=== PATIENT | male | born 1980 | race Caucasian/White ===

== ENCOUNTER 2017-03-14 23:42 | Observation (INO) | payer BC ==
[~2017-03-14] VITALS: Ht 180.3 cm; Wt 98.1 kg
[2017-03-15] VITALS (12 sets, daily range): BP systolic 102–134; BP diastolic 52–82; PULSE 70–121; RESP 20; Ht 180.3 cm; Wt 98.1 kg
[2017-03-15] MEDS ORDERED: DILTIAZEM 25 MG INJ IV ONE ×2 (00:30→01:30)
[2017-03-15] MEDS ORDERED: ENOXAPARIN 100 MG/ML SYG SC ONE (00:30)
[2017-03-15 00:41] LABS: ADD SCAN DIFF NO
[2017-03-15 00:43] LABS: BASOPHILS % 0.4 % (0.0-2.0); EOSINOPHILS # 0.3 10^3/ul (0.0-0.5); EOSINOPHILS % 3.8 % (0.0-7.0); HEMATOCRIT 39.7 % (42.0-52.0); HEMOGLOBIN 13.6 g/dl (14.0-18.0); LYMPHOCYTES # 2.6 10^3/ul (0.8-2.9); LYMPHOCYTES % 34.9 % (15.0-51.0); MEAN CORPUSCULAR HEMOGLOBIN 29.9 pg (29.0-33.0); MEAN CORPUSCULAR HGB CONC 34.3 g/dl (32.0-37.0); MEAN CORPUSCULAR VOLUME 87.3 fl (82.0-101.0); MONOCYTE # 0.7 10^3/ul (0.3-0.9); MONOCYTES % 8.8 % (0.0-11.0); NEUTROPHIL # 3.8 10^3/ul (1.6-7.5); NEUTROPHILS % 51.6 % (39.0-77.0); PLATELET COUNT 244 10^3/UL (140-415); RED BLOOD COUNT 4.55 10^6/ul (4.70-6.10); RED CELL DISTRIBUTION WIDTH 12.4 % (11.5-14.5); WHITE BLOOD COUNT 7.4 10^3/ul (4.8-10.8)
[2017-03-15 00:55] LABS: INR 0.9; PROTIME 12.1 Sec (12.2-14.2); PT RATIO 0.9
[2017-03-15 00:56] LABS: PARTIAL THROMBOPLASTIN TIME 27.1 Sec (25.0-35.0)
[2017-03-15 00:58] LABS: ALANINE AMINOTRANSFERASE 72 IU/L (13-69); ALBUMIN 4.5 g/dl (3.3-4.9); ALBUMIN/GLOBULIN RATIO 1.25; ALKALINE PHOSPHATASE 51 IU/L (42-121); ANION GAP 12 (8-16); ASPARTATE AMINO TRANSFERASE 50 IU/L (15-46); BILIRUBIN,INDIRECT 0.2 mg/dl (0-1.1); BILIRUBIN,TOTAL 0.2 mg/dl (0.2-1.3); BLOOD UREA NITROGEN 17 mg/dl (7-20); CARBON DIOXIDE 27 mmol/L (21-31); CHLORIDE 104 mmol/L (97-110); CREATININE 0.91 mg/dl (0.61-1.24); GLUCOSE 104 mg/dl (70-220); POTASSIUM 3.6 mmol/L (3.5-5.1); SODIUM 139 mmol/L (135-144); TOTAL PROTEIN 8.1 g/dl (6.1-8.1)
--- NOTE | 2017-03-15 01:09 | RADRPT ---
PROCEDURE: Chest. CLINICAL INDICATION: Chest pain. TECHNIQUE: Single frontal view of the chest was obtained. COMPARISON: None. FINDINGS: The cardiac silhouette is within normal limits. The aortic arch is unremarkable. There is no focal consolidation, vascular congestion or pleural effusion. There is no pneumothorax. IMPRESSION: No evidence for active cardiopulmonary disease. .Refugio Her MD, MD Date Time Electronically viewed and signed by .Refugio Her MD, on 03/15/2017 01:09 .T/
[2017-03-15 01:11] LABS: TROPONIN-I < 0.012 ng/ml (0.00-0.12)
[2017-03-15] MEDS ORDERED: DILTIAZEM-D5W 125MG/125ML DRIP 125 ML IV SCH (01:30)
--- NOTE | 2017-03-15 01:55 | ERA ---
ER Documentation Chief Complaint Date/Time DATE: 03/15/17 TIME: 01:52 Chief Complaint PT C/O PALPITATIONS X 20 MIN, NO OTHER HX HPI This is a 37-year-old male who is here for palpitations. The patient states that he was laying in bed trying to fall asleep and he noticed that his heart rate started racing. 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 He has no chest pain dizziness shortness of breath. Patient says he does drink 3 medium sized coffees every day as well as a monster energy drink. He is also currently taking over-the- counter cold medication but does not know the ingredients. He has no cardiac history. ROS All systems reviewed and are negative except as per history of present illness. Allergies Allergies: Coded Allergies: No Known Allergy (Unverified , 03/14/17) PMhx/Soc Medical and Surgical Hx: pt denies Medical Hx, pt denies Surgical Hx History of Surgery: No Anesthesia Reaction: No Hx Neurological Disorder: No Hx Respiratory Disorders: No Hx Cardiac Disorders: No Hx Psychiatric Problems: No Hx Miscellaneous Medical Probl: No Hx Alcohol Use: No Hx Substance Use: No Hx Tobacco Use: No Smoking Status: Never smoker FmHx Family History: No coronary disease Physical Exam Vitals Vital Signs Date Time Temp Pulse Resp B/P Pulse Ox O2 Delivery O2 Flow Rate FiO2 03/14/17 23:45 97.0 80 16 137/83 97 Physical Exam Const: Well-developed, well-nourished Head: Atraumatic, normocephalic Eyes: Normal Conjunctiva, PERRLA, EOMI, normal sclera, no nystagmus ENT: Normal External Ears, Nose and Mouth, moist mucus membranes. Neck: Full range of motion. No meningismus, no lymphadenopathy. Resp: Clear to auscultation bilaterally, no wheezing, rhonchi, rales Cardio: Regular rate and rhythm no murmurs, S1 S2 present Abd: Soft, non tender x 4, non distended. Normal bowel sounds, no guarding or rebound, no pulsitile abdominal masses or bruits Skin: No petechiae or rashes, no ecchymosis , no maculopapular rash Back: No midline or flank tenderness Ext: No cyanosis, or edema, FROM x 4, normal inspection, neurovascularly intact x 4 Neur: Awake and alert, STR 5/5 x 4, sensation intact x 4, no focal findings, cerebellum intact Psych: Normal Mood and Affect Result Diagram: 03/15/172903/15/1729 Results 24 hrs Laboratory Tests Test 03/15/17 00:30 White Blood Count 7.410^3/ul Red Blood Count 4.5510^6/ul Hemoglobin 13.6g/dl Hematocrit 39.7% Mean Corpuscular Volume 87.3fl Mean Corpuscular Hemoglobin 29.9pg Mean Corpuscular Hemoglobin Concent 34.3g/dl Red Cell Distribution Width 12.4% Platelet Count 23133^3/UL Mean Platelet Volume 10.0fl Neutrophils % 51.6% Lymphocytes % 34.9% Monocytes % 8.8% Eosinophils % 3.8% Basophils % 0.4% Nucleated Red Blood Cells % 0.0/100WBC Neutrophils # 3.810^3/ul Lymphocytes # 2.610^3/ul Monocytes # 0.710^3/ul Eosinophils # 0.310^3/ul Basophils # 0.010^3/ul Nucleated Red Blood Cells # 0.010^3/ul Prothrombin Time 12.1Sec Prothrombin Time Ratio 0.9 INR International Normalized Ratio 0.90 Activated Partial Thromboplast Time 27.1Sec Sodium Level 139mmol/L Potassium Level 3.6mmol/L Chloride Level 104mmol/L Carbon Dioxide Level 27mmol/L Anion Gap 12 Blood Urea Nitrogen 17mg/dl Creatinine 0.91mg/dl Glucose Level 104mg/dl Calcium Level 9.0mg/dl Total Bilirubin 0.2mg/dl Direct Bilirubin 0.00mg/dl Indirect Bilirubin 0.2mg/dl Aspartate Amino Transf (AST/SGOT) 50IU/L Alanine Aminotransferase (ALT/SGPT) 72IU/L Alkaline Phosphatase 51IU/L Troponin I < 0.012ng/ml Total Protein 8.1g/dl Albumin 4.5g/dl Globulin 3.60g/dl Albumin/Globulin Ratio 1.25 Current Medications Medications (Trade) Dose Ordered Sig/Nga Route PRN Reason Start Time Stop Time Status Last Admin Dose Admin Diltiazem HCl (Cardizem Iv) 20 mg ONCE ONCE IV 03/15/17 00:30 03/15/17 00:31 DC 03/15/17 00:17 Enoxaparin Sodium (Lovenox) 100 mg ONCE ONCE SC 03/15/17 00:30 03/15/17 00:31 DC 03/15/17 00:16 Diltiazem HCl 20 mg 20 mg ONCE ONCE IV 03/15/17 01:30 03/15/17 01:31 DC 03/15/17 01:30 Diltiazem HCl (Cardizem-D5W 125 Mg/125 ml Drip) 125 ml @ 10 mls/hr [id number] IV 03/15/17 01:30 03/15/17 01:30 Procedures/MDM EKG: Rate/Rhythm: Atrial fibrillation with rapid ventricular response QRS, ST, QT: NORMAL , QRS, QT] Impression: A. fib with RVR PROCEDURE: Chest. CLINICAL INDICATION: Chest pain. TECHNIQUE: Single frontal view of the chest was obtained. COMPARISON: None. FINDINGS: The cardiac silhouette is within normal limits. The aortic arch is unremarkable. There is no focal consolidation, vascular congestion or pleural effusion. There is no pneumothorax. IMPRESSION: No evidence for active cardiopulmonary disease. .Refugio Her MD, Date Time Electronically viewed and signed by .Refugio Her MD, MD on 03/15/2017 01:09 .T/ CC: JASWANT CASAS DO Patient received Cardizem IV bolus and drip to control his heart rate. Heart rate was running from 119-172 Patient's A. fib is likely due to a combination of caffeine and over-the- counter decongestants. After Cardizem was given he still in A. fib but rate controlled. Will admit him for cardioversion Lovenox subcu has been given Departure Diagnosis: Primary Impression: Atrial fibrillation with rapid ventricular response Condition: Stable JASWANT CASAS DO March 15, 2017 01:55
[2017-03-15] MEDS ORDERED: ONDANSETRON 4 MG INJ IV PRN ×2 (02:00→03:30)
[2017-03-15] MEDS ORDERED: ACETAMINOPHEN 325 MG TAB PO PRN (02:00)
[2017-03-15] MEDS: ACETAMINOPHEN 325 MG TAB PO PRN ×2 (04:15→10:33)
--- NOTE | 2017-03-15 04:58 | HP ---
Date/Time of Note Date/Time of Note DATE: 03/15/17 TIME: 04:39 Assessment/Plan VTE Prophylaxis VTE Prophylaxis Intervention: SCD's Lines/Catheters IV Catheter Type (from [facility]): Saline Lock Urinary Cath still in place: No Assessment/Plan Assessment/Plan IMPRESSION 37 yo with new onset Afib likely cold med and coffee induced, currently rate controlled. PLAN Currently rate controlled. Will place him on Beta-Blockers, aspirin Will obtain 2D-echo and will consider cardiology consult. Will trend trops and check Thyroid profile in am HPI/ROS Admit Date/Time Admit Date/Time March 15, 2017 at 01:56 Hx of Present Illness This is a 37 yo with no significant past medical presented to ER c/o sudden onset palpitations that occurs at home. He said he ate sea food and had a beer last night. He drinks several cups of coffee and takes OTC allergy med. He denied chest pain, SOB, fever, chills, N/V, diaphoresis. In ER he was found to be in Afib with RVR with HR in 150s. Currently on Cadrizem gtt and HR is in 70s. . PMH/Family/Social Past Medical History Medical History: no pertinent history Past Surgical History Past Surgical Hx: no surgical history Social History Alcohol Use: none Smoking Status: Never smoker Drug Use: none Exam/Review of Systems Vital Signs Vitals Vital Signs Date Time Temp Pulse Resp B/P Pulse Ox O2 Delivery O2 Flow Rate FiO2 03/15/17 04:07 79 03/15/17 02:45 98.7 20 102/62 96 Room Air Exam Constitutional: alert, oriented, well developed Head: atraumatic, normocephalic Eyes: EOMI, PERRL Neck: non-tender, supple Respiratory: clear to auscultation, normal air movement Cardiovascular: nl pulses, regular rate and rhythm Gastrointestinal: non-tender, soft Extremities: normal pulses Labs Result Diagram: 03/15/17 0030 03/15/17 0030 Medications Medications Current Medications Metoprolol Tartrate (Lopressor) 25 mg BID PO ; Start 03/15/17 at 09:00 Ondansetron HCl (Zofran Inj) 4 mg Q6H PRN IV NAUSEA AND/OR VOMITING; Start 03/15 at 03:30 Acetaminophen (Tylenol Tab) 650 mg Q6H PRN PO PAIN AND OR ELEVATED TEMP Last administered on 03/15/17t 04:15; Admin Dose 650 MG; Start 03/15/17 at 03:30 TI KING MD March 15, 2017 04:56
[2017-03-15] MEDS ORDERED: SOD CHLORIDE 0.9% 1,000 ML IV ONE (06:30)
[2017-03-15 07:59] LABS: ADD SCAN DIFF NO
[2017-03-15 08:02] LABS: BASOPHILS % 0.5 % (0.0-2.0); EOSINOPHILS # 0.1 10^3/ul (0.0-0.5); EOSINOPHILS % 1.6 % (0.0-7.0); HEMATOCRIT 40.8 % (42.0-52.0); HEMOGLOBIN 13.6 g/dl (14.0-18.0); LYMPHOCYTES # 2.2 10^3/ul (0.8-2.9); LYMPHOCYTES % 28.9 % (15.0-51.0); MEAN CORPUSCULAR HEMOGLOBIN 29.1 pg (29.0-33.0); MEAN CORPUSCULAR HGB CONC 33.3 g/dl (32.0-37.0); MEAN CORPUSCULAR VOLUME 87.2 fl (82.0-101.0); MEAN PLATELET VOLUME 9.9 fl (7.4-10.4); MONOCYTE # 0.7 10^3/ul (0.3-0.9); MONOCYTES % 8.7 % (0.0-11.0); NEUTROPHIL # 4.6 10^3/ul (1.6-7.5); NEUTROPHILS % 59.9 % (39.0-77.0); PLATELET COUNT 259 10^3/UL (140-415); RED BLOOD COUNT 4.68 10^6/ul (4.70-6.10); RED CELL DISTRIBUTION WIDTH 12.8 % (11.5-14.5); WHITE BLOOD COUNT 7.6 10^3/ul (4.8-10.8)
[2017-03-15] MEDS: DILTIAZEM-D5W 125MG/125ML DRIP 125 ML IV SCH ×2 (08:22→19:00)
[2017-03-15 08:34] LABS: ALBUMIN/GLOBULIN RATIO 1.25; BILIRUBIN,INDIRECT 0.3 mg/dl (0-1.1); BILIRUBIN,TOTAL 0.3 mg/dl (0.2-1.3); CALCIUM 8.7 mg/dl (8.4-10.2); CHOL/HDL RATIO 6.4 RATIO; CREATININE 0.84 mg/dl (0.61-1.24); MAGNESIUM 2.1 mg/dl (1.7-2.5); PHOSPHORUS 4.1 mg/dl (2.5-4.9); POTASSIUM 3.8 mmol/L (3.5-5.1); TOTAL PROTEIN 7.2 g/dl (6.1-8.1)
[2017-03-15] MEDS ORDERED: METOPROLOL 25 MG TAB PO SCH (09:00)
[2017-03-15] MEDS ORDERED: ASPIRIN (EC) 325 MG TAB PO SCH (09:00)
[2017-03-15 09:06] LABS: THYROID STIMULATING HORMONE 1.68 MIU/L (0.465-4.680); TRIIODOTHYRONINE 1.96 ng/ml (0.97-1.69)
--- NOTE | 2017-03-15 12:43 | PN ---
Date/Time of Note Date/Time of Note DATE: 03/15/17 TIME: 12:39 Assessment/Plan VTE Prophylaxis VTE Prophylaxis Intervention: ambulation Lines/Catheters IV [facility]ter Type (from [facility]): Peripheral IV Urinary Cath still in place: No Assessment/Plan Chief Complaint/Hosp Course Assessment 1. New onset atrial fibrillation with rapid ventricular rate 2. No prior history of valvular heart disease 3. Recent increase consumption of highly caffeinated drinks Plan 1. Echocardiogram pending 2. Cardiology evaluation, may require cardioversion during this admission 3. Continue rate control with Cardizem 4. Will consider anticoagulation following discussion with cardiology 5. Check thyroid function testing and lipid panel Disposition continue telemetry monitoring Problems: Subjective 24 Hr Interval Summary Free Text/Dictation Patient remains stable this morning denies any chest pain or palpitations He is ambulating without shortness of breath Remains in atrial fibrillation however rate is controlled Upon further questioning he has recently had significant consumption of highly caffeinated drinks Exam/Review of Systems Vital Signs Vitals Vital Signs Date Time Temp Pulse Resp B/P Pulse Ox O2 Delivery O2 Flow Rate FiO2 03/15/17 12:13 76 03/15/17 11:43 99.2 20 102/67 96 03/15/17 02:45 Room Air Intake and Output 03/14/17 03/14/17 03/15/17 15:00 23:00 07:00 Intake Total 240 ml Balance 240 ml Exam GENERAL: Well-nourished well-developed gentleman comfortable at rest VITAL SIGNS: per chart NECK: Supple. No JVD or lymphadenopathy. CARDIAC EXAM: S1, S2. Atrial fibrillation CHEST: clear bilaterally, No added sounds, rales or wheezes ABDOMEN: Soft, nontender. No guarding or rebound. EXTREMITIES: No cyanosis, clubbing or edema. NEUROLOGIC: Generalized weakness. No focal deficits. Results Result Diagram: 03/15/17 0710 03/15/17 0710 Results 24 hrs Laboratory Tests Test 03/15/17 00:30 03/15/17 07:10 White Blood Count 7.4 7.6 Red Blood Count 4.55 L 4.68 L Hemoglobin 13.6 L 13.6 L Hematocrit 39.7 L 40.8 L Mean Corpuscular Volume 87.3 87.2 Mean Corpuscular Hemoglobin 29.9 29.1 Mean Corpuscular Hemoglobin Concent 34.3 33.3 Red Cell Distribution Width 12.4 12.8 Platelet Count 244 259 Mean Platelet Volume 10.0 9.9 Neutrophils % 51.6 59.9 Lymphocytes % 34.9 28.9 Monocytes % 8.8 8.7 Eosinophils % 3.8 1.6 Basophils % 0.4 0.5 Nucleated Red Blood Cells % 0.0 0.0 Neutrophils # 3.8 4.6 Lymphocytes # 2.6 2.2 Monocytes # 0.7 0.7 Eosinophils # 0.3 0.1 Basophils # 0.0 0.0 Nucleated Red Blood Cells # 0.0 0.0 Prothrombin Time 12.1 L Prothrombin Time Ratio 0.9 INR International Normalized Ratio 0.90 Activated Partial Thromboplast Time 27.1 Sodium Level 139 139 Potassium Level 3.6 3.8 Chloride Level 104 109 Carbon Dioxide Level 27 24 Anion Gap 12 10 Blood Urea Nitrogen 17 14 Creatinine 0.91 0.84 Glucose Level 104 98 Calcium Level 9.0 8.7 Total Bilirubin 0.2 0.3 Direct Bilirubin 0.00 0.00 Indirect Bilirubin 0.2 0.3 Aspartate Amino Transf (AST/SGOT) 50 H 41 Alanine Aminotransferase (ALT/SGPT) 72 H 65 Alkaline Phosphatase 51 53 Troponin I < 0.012 Total Protein 8.1 7.2 Albumin 4.5 4.0 Globulin 3.60 H 3.20 Albumin/Globulin Ratio 1.25 1.25 Hemoglobin A1c 5.2 Phosphorus Level 4.1 Magnesium Level 2.1 Triglycerides Level 117 Cholesterol Level 174 LDL Cholesterol, Calculated 124 HDL Cholesterol 27 L Cholesterol/HDL Ratio 6.4 Thyroid Stimulating Hormone (TSH) 1.680 Thyroxine (T4) 10.2 Total Triiodothyronine 1.96 H Medications Medications Current Medications Metoprolol Tartrate (Lopressor) 25 mg BID PO Last administered on 03/15/17 09: 04; Admin Dose 25 MG; Start 03/15/17 at 09:00 Ondansetron HCl (Zofran Inj) 4 mg Q6H PRN IV NAUSEA AND/OR VOMITING; Start 03/15 at 03:30 Acetaminophen 650 mg 650 mg Q6H PRN PO PAIN AND OR ELEVATED TEMP Last administered on 03/15/17 10:33; Admin Dose 650 MG; Start 03/15/17 at 03:30 Diltiazem HCl (Cardizem-D5W 125 Mg/125 ml Drip) 125 ml @ 10 mls/hr [id number] IV Last administered on 03/15/17 08:22; Admin Dose 10 MLS/HR; Start 03/15/17 at 06: 30 Aspirin (Ecotrin) 325 mg DAILY PO Last administered on 03/15/17 09:14; Admin Dose 325 MG; Start 03/15/17 at 09:00 BILL ROY MD, [facility] March 15, 2017 12:42
--- NOTE | 2017-03-15 14:09 | RADRPT ---
Echocardiogram Report Patient Name: TI PATEL Gender: Male Date: 1980 Study Date: 15-Mar-2017 Court Crier: Mary Garcia [facility] Location: 5539 Ref. Physician: TI KING Quality: Adequate Procedures: Transthoracic echocardiogram with complete 2D, M-Mode, and doppler examination. Indications: Atrial Fibrillation. 2D/M Mode Doppler Measurement Value Normal Ranges Measurement Value Normal Ranges LVIDd 2D 4.9 3.5 - 5.6 cm AV Peak Paresh 1.5 m/sec LVIDs 2D 3.2 2.1 - 4.1 cm AV Peak PG 9.3 mmHg LVPWd 2D 0.8 0.6 - 1.1 cm LVOT Peak Paresh 1.1 m/sec IVSd 2D 0.8 0.6 - 1.1 cm LVOT Peak PG 4.8 mmHg AoR Diam 2D 3.3 2.0 - 3.7 cm TR Peak Paresh 1.8 m/sec EDV 2D 114.3 cm3 TR Peak PG 13.4 mmHg ESV 2D 34.2 cm3 RVSP 16.0 mmHg LA Dimen 2D 3.4 2.3 - 4.0 cm Findings Left Ventricle: Lower limits of normal systolic function. Normal left ventricular cavity size. Normal left ventricular wall thickness. Ejection fraction is visually estimated at 50 - 55 %. Tissue Doppler/Mitral Doppler indices are indeterminate in this study due to the presence of atrial fibrillation. Right Ventricle: Normal right ventricular size. Normal right ventricular systolic function. Left Atrium: The left atrium is normal in size. Right Atrium: The right atrium is normal in size. Mitral Valve: Normal appearance and function of the mitral valve with trace physiologic regurgitation. Aortic Valve: Normal appearance of the aortic valve. No significant aortic stenosis or insufficiency. Tricuspid Valve: Normal appearance of the tricuspid valve. Estimated peak PA systolic pressure 16 mmHg. There is trace tricuspid regurgitation. Pulmonic Valve: Normal pulmonic valve appearance. Pericardium: Normal pericardium with no significant pericardial effusion. Aorta: Normal aortic root. IVC: Normal size and normal respiratory collapse consistent with normal right atrial pressure. Conclusions 1.Lower limits of normal systolic function. Normal left ventricular cavity size. Normal left ventricular wall thickness. Ejection fraction is visually estimated at 50 - 55 %. Tissue Doppler/Mitral Doppler indices are indeterminate in this study due to the presence of atrial fibrillation. 2.Normal appearance and function of the mitral valve with trace physiologic regurgitation. 3.Normal appearance of the aortic valve. No significant aortic stenosis or insufficiency. 4.Normal appearance of the tricuspid valve. Estimated peak PA systolic pressure 16 mmHg. There is trace tricuspid regurgitation. Electronically Signed By: Jose Alfredo 15-Mar-2017 14:08:00 -0700 Patient Name: TI PATEL Study Date: 15-Mar-2017 [id number]
[2017-03-15] MEDS ORDERED: POTASSIUM CHLORIDE (SR) 20 MEQ TAB PO STA (14:43)
[2017-03-15] MEDS ORDERED: RIVAROXABAN 20 MG TABLET PO SCH (18:05)
[2017-03-15] MEDS ORDERED: ZOLPIDEM 5 MG TAB PO PRN (19:00)
--- NOTE | 2017-03-15 19:00 | CONS ---
DATE OF ADMISSION: 03/15/2017 DATE OF CONSULTATION: REFERRING PHYSICIAN: Dr. King. REASON FOR CONSULTATION: Atrial fibrillation. CHIEF COMPLAINT: Palpitation. HISTORY OF PRESENT ILLNESS: Thank you for this referral. History obtained from the patient, adriana jeronimo with Dr. Ohara, discussion with the staff. Discussion with his brother and his girlfriend osmel rizzo. A very pleasant 37-year-old gentleman with known past medical history who came to emergency r oom with above complaint. The patient last night, he had sudden onset of chest palpitations, heart was pounding, it did not go away, he came to the emergency room and was noted to be in atrial fibril lation with rapid ventricular response. He has been placed on Cardizem drip, beta andria, heart ra te has improved. He is still in atrial fibrillation, but he feels much better. Denies any chest pa in or pressure, ____ palpitation to me. He denies any history of drug use, tobacco use or heavy alc ohol use. Has had maybe half of a beer last night only. He does drink quite amount of coffee and s timulants and Red Bull to keep him awake. He ____ late at night as well. PAST MEDICAL HISTORY: None. SURGICAL HISTORY: None. SOCIAL HISTORY: Does not smoke or drink. FAMILY HISTORY: No reported early coronary artery disease. ALLERGIES: NO REPORTED ALLERGIES. MEDICATIONS AT HOME: None. REVIEW OF SYSTEMS: All otherwise negative except for above mentioned. He denies any snoring at nig httime either. PHYSICAL EXAMINATION: VITAL SIGNS: Temperature 99.2, heart rate of 76, blood pressure 102/67, respiration rate of 20, sat urating 96%. Heart rate was initially in the 150s. HEENT: Normocephalic, atraumatic. No acute distress. CARDIOVASCULAR: Irregularly irregular, systolic murmur. PULMONARY: No wheezes heard. GASTROINTESTINAL: Soft, nontender. EXTREMITIES: No significant lower extremity edema. NEUROLOGIC: Awake, alert, oriented x3. PSYCHIATRIC: Calm, very pleasant. DERMATOLOGIC: With no active bleeding sign. LABORATORY: Sodium 139, potassium 3.8, BUN of 14, creatinine 0.84, glucose of 98. Potassium was 3. 6 at midnight and 3.8 now. Mag is ____. Cholesterol 174, LDL 124, HDL 27. TSH is 1.6. Albumin is 4. Troponin less than 0.12. ALT of 72, down to 65. EKG: Atrial fibrillation with rapid ventricular response. Echocardiogram was also personally reviewed, which showed normal LV size and ejection fraction of pr obably about 50-55% with normal left atrial size. ASSESSMENT AND PLAN: 1. Atrial fibrillation with rapid ventricular response appeared to be paroxysmal. 2. Palpitations secondary to above. 3. Dyslipidemia. 4. Elevated liver function tests. RECOMMENDATIONS: I will start the patient on Xarelto. Stop the metoprolol and instead put him on s otalol 80 mg p.o. b.i.d. Replace the potassium. We will give another 20 mEq of potassium. Will mo nitor him until tomorrow morning. If by tomorrow, he does not convert back to sinus rhythm, we will plan to do AISSATOU cardioversion. Risks and benefits of the procedure discussed with the patient in det ail. The risks including the risk of CVA, anesthesia complications, perforation, etc., discussed wi th the patient in the presence of his brother and girlfriend in detail. He has consented to procedu re. Thank you for this referral. Dictated By: SCOTTY SAUCEDA MD AV/TRACEY Conf#: [id number] DID#: [id number] CC: TI KING MD;*End*
[2017-03-15] MEDS ORDERED: SOTALOL 80 MG TAB PO SCH (21:00)
[2017-03-15] MEDS: METOPROLOL 25 MG TAB PO SCH (21:24)
[2017-03-16 00:10] VITALS: PULSE 72
[2017-03-16 00:18] VITALS: BP 121/63; RESP 20
[2017-03-16 03:42] VITALS: BP 123/67; RESP 20
[2017-03-16 04:01] VITALS: PULSE 63
[2017-03-16] MEDS: DILTIAZEM-D5W 125MG/125ML DRIP 125 ML IV SCH (07:12)
[2017-03-16 07:21] LABS: ADD SCAN DIFF NO
[2017-03-16 07:37] LABS: BASOPHILS % 0.4 % (0.0-2.0); EOSINOPHILS # 0.2 10^3/ul (0.0-0.5); EOSINOPHILS % 3.2 % (0.0-7.0); HEMATOCRIT 42.4 % (42.0-52.0); HEMOGLOBIN 14.7 g/dl (14.0-18.0); LYMPHOCYTES # 2.1 10^3/ul (0.8-2.9); LYMPHOCYTES % 28.2 % (15.0-51.0); MEAN CORPUSCULAR HEMOGLOBIN 30.3 pg (29.0-33.0); MEAN CORPUSCULAR HGB CONC 34.7 g/dl (32.0-37.0); MEAN CORPUSCULAR VOLUME 87.4 fl (82.0-101.0); MONOCYTE # 0.6 10^3/ul (0.3-0.9); MONOCYTES % 7.7 % (0.0-11.0); NEUTROPHIL # 4.4 10^3/ul (1.6-7.5); NEUTROPHILS % 59.9 % (39.0-77.0); PLATELET COUNT 267 10^3/UL (140-415); RED BLOOD COUNT 4.85 10^6/ul (4.70-6.10); RED CELL DISTRIBUTION WIDTH 12.6 % (11.5-14.5); WHITE BLOOD COUNT 7.3 10^3/ul (4.8-10.8)
[2017-03-16 07:49] LABS: CALCIUM 9.1 mg/dl (8.4-10.2); CREATININE 0.88 mg/dl (0.61-1.24); MAGNESIUM 2.2 mg/dl (1.7-2.5); PHOSPHORUS 4.2 mg/dl (2.5-4.9); POTASSIUM 3.9 mmol/L (3.5-5.1)
[2017-03-16 07:52] VITALS: BP 114/77; RESP 18
[2017-03-16 07:53] LABS: INR 1.31; PROTIME 16.4 Sec (12.2-14.2); PT RATIO 1.3
[2017-03-16 07:54] LABS: ALBUMIN 4.3 g/dl (3.3-4.9); ALBUMIN/GLOBULIN RATIO 1.43; BILIRUBIN,INDIRECT 0.4 mg/dl (0-1.1); BILIRUBIN,TOTAL 0.4 mg/dl (0.2-1.3); CALCIUM 9.2 mg/dl (8.4-10.2); CHOL/HDL RATIO 5.9 RATIO; CREATININE 0.9 mg/dl (0.61-1.24); POTASSIUM 4.1 mmol/L (3.5-5.1); TOTAL PROTEIN 7.3 g/dl (6.1-8.1)
[2017-03-16 08:02] VITALS: PULSE 71
[2017-03-16 08:25] LABS: THYROID STIMULATING HORMONE 1.4 MIU/L (0.465-4.680)
[2017-03-16] MEDS: METOPROLOL 25 MG TAB PO SCH (09:01)
[2017-03-16 09:46] LABS: ALBUMIN 4.2 g/dl (3.3-4.9); BILIRUBIN,INDIRECT 0.4 mg/dl (0-1.1); BILIRUBIN,TOTAL 0.4 mg/dl (0.2-1.3); CREATINE KINASE 336 IU/L (23-200); TOTAL PROTEIN 7.6 g/dl (6.1-8.1)
[2017-03-16 09:59] LABS: CK-MB 0.35 ng/ml (0.0-2.4); TROPONIN-I < 0.012 ng/ml (0.00-0.12)
--- NOTE | 2017-03-16 10:53 | PDOCDIS ---
Discharge Instructions DIAGNOSIS Discharge Diagnosis: atrial fibrillation. CONDITION Patient Condition: Good HOME CARE INSTRUCTIONS: Diet Instructions: RegularSpecial Diet: Regular ACTIVITY: Activity Restrictions: No Restrictions FOLLOW UP/APPOINTMENTS Appointments Dr Alfredo 1 week. SCHOOL/WORK RELEASE May return to School/Work on: March 22, 2017 May return to School/Work with: No Restrictions BILL ROY MD, [facility] March 16, 2017 10:53
[2017-03-16] MEDS ORDERED: METO25TA7 PO (10:56)
[2017-03-16] MEDS ORDERED: RIVA20TA PO (10:56)
--- NOTE | 2017-03-16 11:28 | PN ---
DATE: 03/16/2017 CARDIOLOGY FOLLOWUP SUBJECTIVE: Discussed with the staff. Rhythm strip was reviewed and discussed with and patient's girlfriend. Patient converted back to sinus rhythm last night, remains in sinus rhythm. No chest pain or pressure, wants to go home. MEDICATIONS: Reviewed. Medication reconciliation personally reviewed. Patient is not allowed to b e on sotalol, so he agreed to take metoprolol. PHYSICAL EXAMINATION: VITAL SIGNS: Temperature 97.5, heart rate of 71, blood pressure 114/77, respirations 18, saturating 98%. HEENT: Normocephalic, atraumatic. No acute distress. Pupils are equal. CARDIOVASCULAR: Regular rate and rhythm, systolic murmur. PULMONARY: With no wheezes, no rhonchi. GASTROINTESTINAL: Soft, nontender. EXTREMITIES: With no significant edema. NEUROLOGIC: Awake, alert x3. PSYCHIATRIC: Calm, pleasant. LABORATORY: WBC of 7.3, hemoglobin 14.7, platelets of 267. Sodium 139, potassium 4.1, BUN of 12, c reatinine 0.9, glucose of 89. TSH 1.4. Free T4 is 1.26. Cholesterol 173, LDL of , HDL of 29 . ASSESSMENT AND PLAN: 1. Paroxysmal atrial fibrillation with rapid ventricular response, currently back in sinus rhythm. 2. Palpitations secondary to above. 3. Dyslipidemia. 4. Elevated LFT which has improved this morning. RECOMMENDATIONS: The patient will be continued on Xarelto. I will change the metoprolol to Toprol- XL for convenience mostly so she can take it once a day only. Xarelto should be completed with the next month. The patient is to follow with me within the next 2-week and we will decide. Dictated By: SCOTTY KNOWLES/TRACEY Conf#: [id number] DID#: [id number]
--- NOTE | 2017-03-16 13:13 | DS ---
DATE OF ADMISSION: 03/15/2017 DATE OF DISCHARGE: 03/16/2017 DISCHARGE DIAGNOSES: Atrial fibrillation with rapid ventricular rate, new onset. HOSPITAL COURSE: This is a pleasant 37-year-old gentleman with no significant past medical history, had sudden onset palpitations and chest discomfort, found to be in atrial fibrillation with rapid v entricular rate. Upon further questioning, the patient had recently been consuming large amounts of caffeinated drinks. No history of substance abuse. No history of cardiac disease with family. Th e patient was treated with Cardizem and remained in atrial fibrillation, rate controlled for several hours and then converted back to sinus rhythm without further intervention. Echocardiogram was per formed by Dr. Alfredo. The ejection fraction was within normal limits. PA pressures were normal. P er cardiology recommendations, the patient was started on anticoagulation with Xarelto and placed on metoprolol XL 25 mg p.o. daily. The patient to be followed by Dr. Alfredo as an outpatient. I anti cipate cessation of beta-andria and anticoagulation soon. I explained that he should avoid caffein ated drinks for the foreseeable future to ensure his heart rate remains controlled. CONDITION ON DISCHARGE: Stable. ACTIVITY: As tolerated. Return to work within 1 week. Follow up with primary care physician and Megha Alfredo. Dictated By: BILL ANAND/TRACEY Conf#: [id number] DID#: [id number]
[2017-03-16] MEDS ORDERED: METOPROLOL (XL) 25 MG TAB PO SCH (21:00)
== END 2017-03-16 11:40 | disposition home or self-care (01) ==
LOC: E/R 23:42 → EEVIPCON 23:42 → MS4 03-15 01:56
PROVIDERS: ADMIT Internal Medicine; ATTEND Internal Medicine
DX: I48.0 Paroxysmal atrial fibrillation (principal); E78.5 Hyperlipidemia, unspecified
CPT/HCPCS: 36415; 71010; 80048; 80053; 80061; 80076; 82550; 82553; 83036; 83735; 84100; 84436; 84439; 84443; 84480; 84484; 85025; 85610; 85730; 93005; 93306; 96360; 96372; 96374; 96375; 96376; 99285; G0378; J7030; J1650